=== PATIENT | female | born 1970 | race Asian ===

== ENCOUNTER 2020-12-10 07:39 | Emergency (ER) | payer OTHER ==
[~2020-12-10] VITALS: Ht 154.9 cm; Wt 61.7 kg
[2020-12-10] MEDS ORDERED: XANAX 0.5 MG0.5 M1 PO (07:52)
[2020-12-10] MEDS ORDERED: AMBIEN 10 MG TA10 MG PO (07:52)
[2020-12-10] MEDS ORDERED: HYDROCODON-ACE1 EAC7 PO (08:48)
[2020-12-10 14:28] VITALS: BP 151/70
== END 2020-12-10 14:29 | disposition home or self-care (01) ==
LOC: M.ERS 07:39
DX: S00.531A Contusion of lip, initial encounter (principal); M54.2 Cervicalgia; Y08.89XA Assault by other specified means, initial encounter; Y93.89 Activity, other specified; Y92.89 Other specified places as the place of occurrence of the external cause; Y99.8 Other external cause status